=== PATIENT | male | born 1940 | race Caucasian/White ===

== ENCOUNTER 2017-03-18 20:14 | Inpatient (IN) | payer MEDICARE, OTHER ==
[~2017-03-18] VITALS: Ht 182.9 cm; Wt 113.8 kg
--- NOTE | ~2017-03-18 | OP ---
PATIENT NAME: BUNNY MISHRA MEDICAL RECORD: [id number] :38 LOCATION:[facility] ADMISSION DATE:03/19/17 SURGEON: BUNNY BRUMFIELD MD DATE OF OPERATION: 03/20/2017 DATE OF OPERATION: 03/20/2017 PREOPERATIVE DIAGNOSIS: Four-part fracture dislocation of the right shoulder. POSTOPERATIVE DIAGNOSIS: Four-part fracture dislocation of the right shoulder. PROCEDURE: Fracture hemiarthroplasty of the right shoulder. SURGEON: Bunny Brumfield MD ANESTHESIA: General. INTRAOPERATIVE COMPLICATIONS: None. SUMMARY OF PATHOLOGIC FINDINGS: The patient essentially had multi-fragmented greater and lesser tuberosities. The humeral head was in the inferior capsular recess. IMPLANTS USED: Tornier fracture stem, Aequalis, size 9 stem on a 48 x 18 head, cemented with Tornier cement restrictor. OPERATIVE SUMMARY IN DETAIL: After obtaining the appropriate preoperative orthopedic surgery consent as well as anesthetic consultation, evaluation and clearance, the patient was brought to the operating room and placed on the operating table in supine position. After general laryngeal mask airway was administered, the patient was placed in the beachchair position. All pressure points were well padded. He was held firmly to the operating room table using the vacuum pack suction system. The arm was held in the Arthrex Trimano arm holding device. After the right upper extremity was prepped and draped in routine sterile fashion, the arm was placed sterilely in the Arthrex Trimano device, deltopectoral incision was created. This was taken down to the level of the deltopectoral interval. This was gently opened to reveal the clavipectoral fascia which was blood stained from the fracture. At this point, clavipectoral was incised. The conjoined tendon was gently retracted. Biceps tendon was displaced medially. The lesser and greater tuberosities were multi-fragmented, serial and sequential control was gained with #2 FiberWire. The metaphyseal component of the head was saved at this point with each step for bone grafting later. Calcar was preserved. Ultimately, the humeral head was removed from the inferior pouch with a significant degree of difficulty. Having completed this, the entire cavity was cleaned of any fragmentation. Serial and sequential reaming and broaching, size 9 cemented fracture stem from Tornier was most appropriate on trial. Bone cement restrictor was put in and the stem was cemented in approximately 30 degrees of retroversion with the humeral head impacted on the Watts taper. This was then relocated after the cement was allowed to harden and the greater and lesser tuberosities multi-fragments were pulled around the humeral head, tied with sutures both around the neck as well as through the greater tuberosities. There was a bone void just inferior to the greater and lesser tuberosities. This was filled entirely with a bone graft as was the underside of the greater and lesser tuberosities packed with bone graft from the [place] humeral head. Having completed this, irrigation gentle was then OPERATIVE REPORT [id number] BUNNY MISHRA followed by closure of the wound with #1 Vicryl followed by skin charissa. Sterile dressings were applied. A slingshot brace was applied. The patient was awakened, taken to recovery room in stable condition. All final needle and sponge counts were correct. TRANSINT:[id number] Voice Confirmation ID: [id number] DOCUMENT ID: [id number] BUNNY BRUMFIELD MD at 0940 CC: [id number] DICTATION DATE: 03/20/172156 WELT DRAWER: 03/21/[address] [facility] [address] [place] [id number]
[2017-03-18] MEDS ORDERED: AMBIEN10 MG PO (23:03)
[2017-03-18] MEDS ORDERED: ASPIRIN EC81 M1 PO (23:04)
[2017-03-18] MEDS ORDERED: PROZAC40 MG PO (23:05)
[2017-03-18] MEDS ORDERED: ZESTRIL20 MG PO (23:08)
[2017-03-18] MEDS ORDERED: ZYRTEC10 MG PO (23:09)
[2017-03-18] MEDS ORDERED: CARDIZEM60 MG PO (23:12)
[2017-03-18] MEDS ORDERED: NAMENDA5 MG PO (23:14)
[2017-03-18] MEDS ORDERED: CRESTOR10 MG PO (23:16)
[2017-03-18] MEDS ORDERED: RANITIDINE H15 MG/ML PO (23:17)
[2017-03-18] MEDS ORDERED: NIASPAN500 MG PO (23:19)
[2017-03-18] MEDS ORDERED: CYCLOBENZAPRINE10 MG PO (23:22)
[2017-03-18] MEDS ORDERED: ATIVAN2 MG PO (23:23)
[2017-03-18 23:27] LABS: BASOPHILS 0.1 % (0-2); EOSINOPHILS 1.2 % (0-7); HEMATOCRIT 38.4 % (42.0-54.0); HEMOGLOBIN 12.2 g/dL (13.5-17.5); IMMATURE GRANULOCYTES 0.5 % (0-5); LYMPHOCYTES 5.3 % (15-50); MCH 29.4 pg (26.0-34.0); MCHC 31.8 g/dL (31.0-37.0); MCV 92.5 fL (80.0-100.0); MEAN PLATELET VOLUME 9.8 fL (7.4-10.4); MONOCYTES 6.8 % (2-11); NEUTROPHILS 86.1 % (40-80); PLATELET COUNT 217 10x3/uL (130-400); RBC 4.15 10x6/uL (4.20-6.10); RDW 15.1 % (11.5-14.5); WBC 15.6 10x3/uL (4.8-10.8)
[2017-03-18] MEDS ORDERED: GLUCOPHAGE500 MG PO (23:27)
[2017-03-18 23:37] LABS: APTT 24.7 SECONDS (22.8-39.4); PROTIME 12.8 SECONDS (11.6-15.0)
[2017-03-18 23:44] LABS: ALBUMIN 3.7 g/dL (3.4-5.0); ANION GAP 14.5 mmol/L (8-16); BILIRUBIN - TOTAL 0.24 mg/dL (0.2-1.3); CALCIUM 9.1 mg/dL (8.5-10.1); CARBON DIOXIDE 26.1 mmol/L (21.0-32.0); CREATININE - SERUM 1.6 mg/dL (0.6-1.3); POTASSIUM - SERUM 4.6 mmol/L (3.5-5.1); PROTEIN - SERUM 6.9 g/dL (6.4-8.2)
[2017-03-19] VITALS (7 sets, daily range): BP systolic 94–150; BP diastolic 53–76
[2017-03-19 07:56] LABS: BASOPHILS 0.1 % (0-2); EOSINOPHILS 1.2 % (0-7); HEMATOCRIT 34.6 % (42.0-54.0); IMMATURE GRANULOCYTES 0.4 % (0-5); LYMPHOCYTES 7.7 % (15-50); MCH 29.6 pg (26.0-34.0); MCHC 31.8 g/dL (31.0-37.0); MEAN PLATELET VOLUME 9.8 fL (7.4-10.4); NEUTROPHILS 83.6 % (40-80); PLATELET COUNT 214 10x3/uL (130-400); RBC 3.72 10x6/uL (4.20-6.10); RDW 15.5 % (11.5-14.5); WBC 13.2 10x3/uL (4.8-10.8)
[2017-03-19 08:08] LABS: APTT 23.6 SECONDS (22.8-39.4); INR 1.07 (0.85-1.17); PROTIME 13.5 SECONDS (11.6-15.0)
[2017-03-19 08:12] LABS: ALBUMIN 3.2 g/dL (3.4-5.0); ANION GAP 13.1 mmol/L (8-16); BILIRUBIN - TOTAL 0.31 mg/dL (0.2-1.3); CALCIUM 8.7 mg/dL (8.5-10.1); CARBON DIOXIDE 25.6 mmol/L (21.0-32.0); CREATININE - SERUM 1.8 mg/dL (0.6-1.3); MAGNESIUM - SERUM 2.1 mg/dL (1.8-2.4); PHOSPHOROUS 4.4 mg/dL (2.5-4.9); POTASSIUM - SERUM 4.7 mmol/L (3.5-5.1); PROTEIN - SERUM 6.3 g/dL (6.4-8.2)
[2017-03-19 12:13] LABS: APPEARANCE CLEAR (CLEAR); BILIRUBIN NEGATIVE (NEGATIVE); COLOR YELLOW (YELLOW); GLUCOSE 50 mg/dL (NEGATIVE); KETONE NEGATIVE (NEGATIVE); NITRITE NEGATIVE (NEGATIVE); PROTEIN 2+ mg/dL (NEGATIVE); UROBILINOGEN NORMAL (NORMAL)
[2017-03-19 12:15] LABS: BACTERIA FEW /hpf (NONE SEEN); CALCIUM OXALATE CRYSTALS 0-5 /hpf (NONE SEEN); EPITHELIAL CELLS 0-5 /hpf (0-5); HYALINE CAST 0-5 /lpf (NONE SEEN); RED CELLS - URINE 0-5 /hpf (0-5); WHITE CELLS - URINE 0-5 /hpf (0-5)
[2017-03-20 00:56] VITALS: BP 125/61
[2017-03-20 04:23] VITALS: BP 119/59
[2017-03-20 08:15] VITALS: BP 128/61
[2017-03-20 08:38] LABS: HEMATOCRIT 34.2 % (42.0-54.0); HEMOGLOBIN 10.7 g/dL (13.5-17.5); MCH 28.9 pg (26.0-34.0); MCHC 31.3 g/dL (31.0-37.0); MCV 92.4 fL (80.0-100.0); MEAN PLATELET VOLUME 9.9 fL (7.4-10.4); RBC 3.7 10x6/uL (4.20-6.10); RDW 15.3 % (11.5-14.5)
[2017-03-20 08:39] LABS: WBC 17.4 10x3/uL (4.8-10.8)
[2017-03-20 08:53] LABS: CALCIUM 8.7 mg/dL (8.5-10.1); CARBON DIOXIDE 24.6 mmol/L (21.0-32.0); CREATININE - SERUM 2.1 mg/dL (0.6-1.3); POTASSIUM - SERUM 4.6 mmol/L (3.5-5.1)
[2017-03-20 12:53] VITALS: BP 117/51
[2017-03-20 16:02] VITALS: BP 141/48
[2017-03-20 22:56] VITALS: BP 136/54
[2017-03-21 04:00] VITALS: BP 112/47
[2017-03-21 07:55] VITALS: BP 86/50
[2017-03-21 10:17] LABS: HEMATOCRIT 27.5 % (42.0-54.0); HEMOGLOBIN 8.8 g/dL (13.5-17.5); MCH 29.5 pg (26.0-34.0); MCV 92.3 fL (80.0-100.0); RBC 2.98 10x6/uL (4.20-6.10); RDW 15.3 % (11.5-14.5); WBC 13.9 10x3/uL (4.8-10.8)
[2017-03-21 11:52] VITALS: BP 113/52
[2017-03-21 16:11] VITALS: BP 90/45
[2017-03-21 20:00] VITALS: BP 173/56
[2017-03-22 04:00] VITALS: BP 140/63
[2017-03-22 08:17] VITALS: BP 118/63
[2017-03-22 11:55] VITALS: BP 110/56
[2017-03-22 16:33] VITALS: BP 160/61
[2017-03-23 04:00] VITALS: BP 156/69
[2017-03-23 08:38] VITALS: BP 155/68
[2017-03-23 08:57] LABS: HEMATOCRIT 24.7 % (42.0-54.0); HEMOGLOBIN 8.1 g/dL (13.5-17.5); MCH 29.3 pg (26.0-34.0); MCHC 32.8 g/dL (31.0-37.0); MEAN PLATELET VOLUME 9.4 fL (7.4-10.4); RBC 2.76 10x6/uL (4.20-6.10); RDW 15.3 % (11.5-14.5); WBC 12.8 10x3/uL (4.8-10.8)
[2017-03-23 09:00] LABS: MCV 89.5 fL (80.0-100.0)
[2017-03-23 09:21] LABS: ANION GAP 15.1 mmol/L (8-16); CALCIUM 8.3 mg/dL (8.5-10.1); CARBON DIOXIDE 22.1 mmol/L (21.0-32.0); CREATININE - SERUM 1.6 mg/dL (0.6-1.3); POTASSIUM - SERUM 4.2 mmol/L (3.5-5.1)
[2017-03-23 11:46] VITALS: BP 148/70
[2017-03-23 12:27] VITALS: Ht 182.9 cm; Wt 113.8 kg
[2017-03-23 16:25] VITALS: BP 168/77
[2017-03-23 20:00] VITALS: BP 185/88
[2017-03-24] VITALS: BP 190/82
[2017-03-24 04:00] VITALS: BP 139/72
[2017-03-24 04:57] LABS: BASOPHILS 0.1 % (0-2); EOSINOPHILS 1.4 % (0-7); HEMATOCRIT 26.2 % (42.0-54.0); HEMOGLOBIN 8.4 g/dL (13.5-17.5); IMMATURE GRANULOCYTES 0.5 % (0-5); MCH 28.8 pg (26.0-34.0); MCHC 32.1 g/dL (31.0-37.0); MCV 89.7 fL (80.0-100.0); MEAN PLATELET VOLUME 9.9 fL (7.4-10.4); MONOCYTES 9.6 % (2-11); NEUTROPHILS 82.4 % (40-80); RBC 2.92 10x6/uL (4.20-6.10); RDW 15.2 % (11.5-14.5); WBC 14.7 10x3/uL (4.8-10.8)
[2017-03-24 05:01] LABS: PLATELET COUNT 281 10x3/uL (130-400)
[2017-03-24 05:14] LABS: ANION GAP 15.1 mmol/L (8-16); CALCIUM 8.5 mg/dL (8.5-10.1); CARBON DIOXIDE 21.2 mmol/L (21.0-32.0); POTASSIUM - SERUM 4.3 mmol/L (3.5-5.1)
[2017-03-24 08:06] VITALS: BP 155/66
[2017-03-24 12:02] VITALS: BP 154/76
[2017-03-24] MEDS ORDERED: ATIVAN1 MG PO (15:31)
[2017-03-24] MEDS ORDERED: ACETAMINOPHEN500 M1 PO (15:31)
== END 2017-03-24 17:34 | DRG 483 ==
LOC: D.ER 20:14 → D.MS 21:55 → OBSVTIME 22:04 → D.MS 03-19 20:47
PROVIDERS: Family Medicine; Internal Medicine Nephrology; Orthopaedic Surgery; Physician Assistant Medical
PROC: 0RRJ0J6 Replacement of Right Shoulder Joint with Synthetic Substitute, Humeral Surface, Open Approach (ICD-10-PCS; principal; 2017-03-18)
DX: S42.201A Unspecified fracture of upper end of right humerus, initial encounter for closed fracture (principal); A41.9 Sepsis, unspecified organism; N17.9 Acute kidney failure, unspecified; N39.0 Urinary tract infection, site not specified; D62 Acute posthemorrhagic anemia; W17.89XA Other fall from one level to another, initial encounter; E11.9 Type 2 diabetes mellitus without complications; Z79.84 Long term (current) use of oral hypoglycemic drugs; I10 Essential (primary) hypertension; F03.90 Unspecified dementia, unspecified severity, without behavioral disturbance, psychotic disturbance, mood disturbance, and anxiety

== ENCOUNTER 2017-03-24 16:43 | Inpatient (IN) | payer MEDICARE, OTHER ==
[~2017-03-24] VITALS: Ht 182.9 cm; Wt 104.8 kg
--- NOTE | ~2017-03-24 | RHP ---
PATIENT: BUNNY MISHRA MEDICAL RECORD: [id number] ACCOUNT: [id number] LOCATION:[facility] : 39 ADMISSION DATE: 03/24/17 REHABILITATION HISTORY AND PHYSICAL EXAMINATION POST ADMISSION PHYSICIAN EXAMINATION DATE OF ADMISSION: 03/24/2017. ADMITTING DIAGNOSIS: Parkinson's disease. HISTORY OF PRESENT ILLNESS: The patient is a 76-year-old gentleman admitted to inpatient rehab heart with Parkinson's disease. He has recently had increasing weakness, functional decline, confusion, and frequent falls. He admitted to the ER on 03/19, fallen at home. He complained of shoulder pain. On exam, he had misalignment, joint swelling, decreased range of motion, deformity. X-ray showed an acute comminuted fracture of right humeral head with probable joint effusion and hemarthrosis. After medical clearance, he went to the OR on 03/20 for fractured hemiarthroscopy of the right shoulder. Postop, he did have an postop anemia of 8.4 and 26.2, hypoxia with sats as low as 89%, requiring continuous O2. He also had fever up to 101.5, hypotension with a BP of 86/50, leukocytosis with a white count of greater than 17,000. He has been on low resistant sliding scale secondary to some elevations in his blood sugar. He is moderate to max assist for ADLs and mobility. He is moderate to max assist for sit to stand and bed to chair. He is max assist for ambulation of only 8 feet with a rolling walker, gait belt, and PT. He has overall got poor balance, weakness in his extremities. His states that he has had a slow decline in his functional mobility. They both feel he would benefit from inpatient rehab as it is only chance of actually returning back to home. COMORBIDITIES: Include Parkinson's, acute comminuted fracture of the shoulder, fracture dislocation, shoulder joint effusion, falls, status post hemiarthroscopy of the right shoulder, weakness, leukocytosis, diabetes, hypoxia, anemia, hypotension, coronary artery disease, and gastroesophageal reflux disease. PAST MEDICAL HISTORY: Significant for Parkinson's, diabetes, hypertension, history of pneumonia. PAST SURGICAL HISTORY: Includes tonsillectomy. ALLERGIES: PENICILLIN. CURRENT MEDICATIONS: Include Protonix 40 mg daily, metformin 500 mg b.i.d. with meals, lisinopril 20 mg daily. He is on Prozac 40 mg daily, aspirin chewable 81 mg daily, Christine 60 mg b.i.d., zolpidem 10 mg at bedtime, Crestor 10 mg at bedtime, niacin 500 mg b.i.d., Namenda 5 mg b.i.d., Ativan 1 mg t.i.d. p.r.n., Cardizem 120 mg b.i.d., Tylenol 500 mg q.4 hours p.r.n., and polyethylene glycol 17 grams in 8 ounces of water daily. HABITS: No alcohol or tobacco use. FAMILY HISTORY: Noncontributory. SOCIAL HISTORY: The patient hopes to return back home with his and get back to his prior level of functioning. HISTORY AND PHYSICAL [id number] BUNNY MISHRA REVIEW OF SYSTEMS: GENERAL: He does complain of weakness. HEENT: He denies cold, cough, or congestion. CARDIOVASCULAR: He denies chest pain. PHYSICAL EXAMINATION: VITAL SIGNS: Stable, afebrile. GENERAL: A well-developed gentleman. HEENT: Normocephalic and atraumatic. Mucosa moist. NECK: Supple. No lymphadenopathy. LUNGS: Clear at this time. HEART: Regular rate and rhythm. ABDOMEN: Benign. EXTREMITIES: He does have bandages and immobilization of his shoulder. NEUROLOGIC: Consistent with Parkinson's with somewhat of a flat affect and noted tremor. LABORATORY DATA: White count 16.4, H&H 8.3 and 24.8, platelet count 363. His sodium is 138, potassium 4.2, BUN and creatinine of 36 and 2.4, and blood sugar is noted to be 138. ASSESSMENT: This is a 76-year-old gentleman admitted to the rehab with a working diagnosis of Parkinson's and also comminuted shoulder fracture and anemia. The patient has potential to make improvement. We instituted the following multidisciplinary therapies including to, but not limited to physical, occupational, respiratory, speech, nutritional services, prosthetics and orthotics. Given his complex condition and risk for more complications, rehabilitation services cannot be provided at a lower level of care such as a [facility] facility. PLAN: 1. Admit to [facility] rehab for intensive inpatient therapy to include the following disciplines: A. Physical therapy to improve gait, all transfer skills and bed mobility to a modified independent level. B. Occupational therapy to improve activities of daily living to a modified independent level. C. Case management to assist with discharge planning and placement options. D. Nutrition to assist with nutritional needs. E. Rehabilitation nursing to assist in monitoring the patient's underlying medical conditions and to assist with any type of bowel or bladder management. 2. The patient's current medication and medical care will be continued. 3. The patient will be placed on standard fall precautions. 4. The patient's estimated length of stay is approximately 7-10 days. 5. I am going to go ahead and type and cross him for a couple units of blood. I will go ahead and transfuse him here today. I will follow up his blood count either tomorrow morning or on Monday morning and we will treat appropriately. TRANSINT:[id number] Voice Confirmation ID: [id number] DOCUMENT ID: [id number] CALI notes whether there has been none or any medical/functional change since admission: - No change since prescreen. HISTORY AND PHYSICAL [id number] BUNNY MISHRA attests patient continues to be appropriate for IRF: - Continues to be appropriate. ADOLFO DÍAZ MD at 1802 CC: [id number] DICTATION DATE: 03/25/17 1317 CLINICAL ATHLETIC INSTRUCTOR: 03/25/17 1351 ADM IN [place] [id number] [place] [id number]
[~2017-03-24 16:43] MED LIST: ACETAMINOPHEN500 M1 PO; AMBIEN10 MG PO; ASPIRIN EC81 M1 PO; ATIVAN1 MG PO; ATIVAN2 MG PO; CARDIZEM60 MG PO; CRESTOR10 MG PO; CYCLOBENZAPRINE10 MG PO; GLUCOPHAGE500 MG PO; NAMENDA5 MG PO; NIASPAN500 MG PO; PROZAC40 MG PO; RANITIDINE H15 MG/ML PO; ZESTRIL20 MG PO; ZYRTEC10 MG PO
[2017-03-24 18:10] VITALS: BP 174/75; BMI 31.4
[2017-03-24 23:26] VITALS: BP 138/94
[2017-03-25 07:01] LABS: HEMATOCRIT 24.8 % (42.0-54.0); HEMOGLOBIN 8.3 g/dL (13.5-17.5); MCH 29.6 pg (26.0-34.0); MCHC 33.5 g/dL (31.0-37.0); MCV 88.6 fL (80.0-100.0); MEAN PLATELET VOLUME 8.8 fL (7.4-10.4); NEUTROPHILS 82.5 % (40-80); RDW 14.9 % (11.5-14.5); WBC 16.4 10x3/uL (4.8-10.8)
[2017-03-25 07:02] LABS: PLATELET COUNT 363 10x3/uL (130-400)
[2017-03-25 07:11] LABS: CALCIUM 8.5 mg/dL (8.5-10.1); CARBON DIOXIDE 20.2 mmol/L (21.0-32.0); CREATININE - SERUM 2.4 mg/dL (0.6-1.3); POTASSIUM - SERUM 4.2 mmol/L (3.5-5.1)
[2017-03-25 11:30] VITALS: BMI 31.3
[2017-03-25 20:00] VITALS: BP 137/69
[2017-03-26 12:39] VITALS: BP 169/76
[2017-03-26 19:07] VITALS: BP 150/72
[2017-03-27 06:05] LABS: BASOPHILS 0.2 % (0-2); EOSINOPHILS 4.9 % (0-7); HEMOGLOBIN 9.6 g/dL (13.5-17.5); IMMATURE GRANULOCYTES 1.6 % (0-5); LYMPHOCYTES 6.2 % (15-50); MCH 29.4 pg (26.0-34.0); MCHC 33.1 g/dL (31.0-37.0); MCV 88.7 fL (80.0-100.0); MEAN PLATELET VOLUME 9.1 fL (7.4-10.4); MONOCYTES 8.7 % (2-11); NEUTROPHILS 78.4 % (40-80); PLATELET COUNT 377 10x3/uL (130-400); RBC 3.27 10x6/uL (4.20-6.10); WBC 15.4 10x3/uL (4.8-10.8)
[2017-03-27 06:24] LABS: ANION GAP 18.8 mmol/L (8-16); CALCIUM 8.4 mg/dL (8.5-10.1); CARBON DIOXIDE 18.9 mmol/L (21.0-32.0); CREATININE - SERUM 2.6 mg/dL (0.6-1.3); POTASSIUM - SERUM 3.7 mmol/L (3.5-5.1)
[2017-03-27 08:00] VITALS: BP 124/61; BP 163/84
[2017-03-27 20:31] VITALS: BP 158/74
[2017-03-28 08:00] VITALS: BP 155/76
[2017-03-28 21:00] VITALS: BP 170/76
[2017-03-29 06:50] LABS: BASOPHILS 0.1 % (0-2); EOSINOPHILS 7.5 % (0-7); HEMATOCRIT 28.7 % (42.0-54.0); HEMOGLOBIN 9.2 g/dL (13.5-17.5); LYMPHOCYTES 7.3 % (15-50); MCH 28.9 pg (26.0-34.0); MCHC 32.1 g/dL (31.0-37.0); MCV 90.3 fL (80.0-100.0); MEAN PLATELET VOLUME 8.9 fL (7.4-10.4); MONOCYTES 7.8 % (2-11); NEUTROPHILS 74.3 % (40-80); PLATELET COUNT 436 10x3/uL (130-400); RBC 3.18 10x6/uL (4.20-6.10); RDW 15.1 % (11.5-14.5); WBC 15.8 10x3/uL (4.8-10.8)
[2017-03-29 07:08] LABS: ANION GAP 19.1 mmol/L (8-16); CALCIUM 8.1 mg/dL (8.5-10.1); CARBON DIOXIDE 18.1 mmol/L (21.0-32.0); CREATININE - SERUM 5.1 mg/dL (0.6-1.3); POTASSIUM - SERUM 4.2 mmol/L (3.5-5.1)
[2017-03-29 07:46] VITALS: BP 161/83
[2017-03-29 20:21] LABS: CREATININE - URINE 62.8 mg/dL (30-125); POTASSIUM - URINE 25.6 MMOL/L (12.0-62.0); PRO/CRE RATIO URINE 1.7 mg/g; PROTEIN - URINE 109.6 mg/dL (0.0-11.9)
[2017-03-29 20:55] LABS: APPEARANCE SLT CLOUDY (CLEAR); BILIRUBIN NEGATIVE (NEGATIVE); COLOR YELLOW (YELLOW); GLUCOSE NEGATIVE (NEGATIVE); KETONE NEGATIVE (NEGATIVE); NITRITE NEGATIVE (NEGATIVE); PROTEIN 1+ mg/dL (NEGATIVE); SPECIFIC GRAVITY 1.015 (1.005-1.020); UROBILINOGEN NORMAL (NORMAL)
[2017-03-29 20:57] LABS: AMORPHOUS SEDIMENT <1+ /lpf (NONE SEEN); BACTERIA FEW /hpf (NONE SEEN); EPITHELIAL CELLS 0-5 /hpf (0-5); RED CELLS - URINE 0-5 /hpf (0-5)
[2017-03-29 21:16] VITALS: BP 149/77
[2017-03-30 06:08] LABS: BASOPHILS 0.2 % (0-2); EOSINOPHILS 5.6 % (0-7); HEMOGLOBIN 9.6 g/dL (13.5-17.5); LYMPHOCYTES 7.8 % (15-50); MCH 28.9 pg (26.0-34.0); MCV 90.4 fL (80.0-100.0); MONOCYTES 8.2 % (2-11); NEUTROPHILS 75.2 % (40-80); PLATELET COUNT 472 10x3/uL (130-400); RBC 3.32 10x6/uL (4.20-6.10); RDW 15.1 % (11.5-14.5); WBC 14.2 10x3/uL (4.8-10.8)
[2017-03-30 06:19] LABS: ANION GAP 16.7 mmol/L (8-16); CALCIUM 7.9 mg/dL (8.5-10.1); CARBON DIOXIDE 20.2 mmol/L (21.0-32.0); POTASSIUM - SERUM 3.9 mmol/L (3.5-5.1)
[2017-03-30 06:25] LABS: CREATININE - SERUM 3.7 mg/dL (0.6-1.3)
[2017-03-30 08:00] VITALS: BP 195/70
[2017-03-30 19:30] VITALS: BP 174/77
[2017-03-31 08:00] VITALS: BP 150/72
[2017-03-31 10:14] LABS: BASOPHILS 0.3 % (0-2); EOSINOPHILS 5.9 % (0-7); HEMATOCRIT 32.8 % (42.0-54.0); HEMOGLOBIN 10.7 g/dL (13.5-17.5); IMMATURE GRANULOCYTES 2.4 % (0-5); LYMPHOCYTES 7.9 % (15-50); MCH 29.6 pg (26.0-34.0); MCHC 32.6 g/dL (31.0-37.0); MCV 90.6 fL (80.0-100.0); MEAN PLATELET VOLUME 8.8 fL (7.4-10.4); MONOCYTES 6.3 % (2-11); NEUTROPHILS 77.2 % (40-80); PLATELET COUNT 471 10x3/uL (130-400); RBC 3.62 10x6/uL (4.20-6.10); WBC 16.8 10x3/uL (4.8-10.8)
[2017-03-31 10:28] LABS: ANION GAP 15.9 mmol/L (8-16); CALCIUM 8.3 mg/dL (8.5-10.1); CARBON DIOXIDE 21.8 mmol/L (21.0-32.0); CREATININE - SERUM 1.8 mg/dL (0.6-1.3); POTASSIUM - SERUM 3.7 mmol/L (3.5-5.1)
[2017-03-31 17:03] VITALS: Ht 182.9 cm; Wt 104.8 kg
[2017-03-31 19:00] VITALS: BP 180/73
[2017-04-01 05:31] LABS: BASOPHILS 0.2 % (0-2); EOSINOPHILS 7.2 % (0-7); HEMATOCRIT 30.5 % (42.0-54.0); HEMOGLOBIN 9.8 g/dL (13.5-17.5); IMMATURE GRANULOCYTES 3.7 % (0-5); LYMPHOCYTES 10.2 % (15-50); MCHC 32.1 g/dL (31.0-37.0); MCV 90.2 fL (80.0-100.0); MEAN PLATELET VOLUME 8.9 fL (7.4-10.4); MONOCYTES 7.7 % (2-11); PLATELET COUNT 491 10x3/uL (130-400); RBC 3.38 10x6/uL (4.20-6.10); WBC 16.3 10x3/uL (4.8-10.8)
[2017-04-01 05:41] LABS: ANION GAP 14.2 mmol/L (8-16); CARBON DIOXIDE 23.4 mmol/L (21.0-32.0); CREATININE - SERUM 1.5 mg/dL (0.6-1.3); POTASSIUM - SERUM 3.6 mmol/L (3.5-5.1)
[2017-04-01 08:00] VITALS: BP 145/070
[2017-04-01 19:35] VITALS: BP 158/70
[2017-04-02 05:49] LABS: BASOPHILS 0.1 % (0-2); EOSINOPHILS 4.5 % (0-7); HEMATOCRIT 31.6 % (42.0-54.0); HEMOGLOBIN 10.1 g/dL (13.5-17.5); IMMATURE GRANULOCYTES 2.6 % (0-5); LYMPHOCYTES 9.9 % (15-50); MCH 29.2 pg (26.0-34.0); MCV 91.3 fL (80.0-100.0); MEAN PLATELET VOLUME 9.4 fL (7.4-10.4); MONOCYTES 7.2 % (2-11); NEUTROPHILS 75.7 % (40-80); RBC 3.46 10x6/uL (4.20-6.10); RDW 14.8 % (11.5-14.5); WBC 15.9 10x3/uL (4.8-10.8)
[2017-04-02 06:07] LABS: PLATELET COUNT 270 10x3/uL (130-400)
[2017-04-02 06:12] LABS: ANION GAP 15.9 mmol/L (8-16); CALCIUM 8.5 mg/dL (8.5-10.1); CARBON DIOXIDE 22.4 mmol/L (21.0-32.0); CREATININE - SERUM 1.4 mg/dL (0.6-1.3); POTASSIUM - SERUM 4.3 mmol/L (3.5-5.1)
[2017-04-02 09:11] VITALS: BP 178/72
[2017-04-02 23:40] VITALS: BP 154/66
[2017-04-03 06:10] LABS: BASOPHILS 0.2 % (0-2); EOSINOPHILS 4.7 % (0-7); HEMATOCRIT 30.7 % (42.0-54.0); HEMOGLOBIN 9.9 g/dL (13.5-17.5); IMMATURE GRANULOCYTES 2.1 % (0-5); LYMPHOCYTES 11.7 % (15-50); MCH 29.4 pg (26.0-34.0); MCHC 32.2 g/dL (31.0-37.0); MCV 91.1 fL (80.0-100.0); MONOCYTES 6.7 % (2-11); NEUTROPHILS 74.6 % (40-80); RBC 3.37 10x6/uL (4.20-6.10); RDW 14.7 % (11.5-14.5); WBC 16.7 10x3/uL (4.8-10.8)
[2017-04-03 06:11] LABS: PLATELET COUNT 557 10x3/uL (130-400)
[2017-04-03 06:33] LABS: ANION GAP 13.9 mmol/L (8-16); CALCIUM 8.2 mg/dL (8.5-10.1); CARBON DIOXIDE 24.7 mmol/L (21.0-32.0); CREATININE - SERUM 1.4 mg/dL (0.6-1.3); POTASSIUM - SERUM 3.6 mmol/L (3.5-5.1)
[2017-04-03 08:00] VITALS: BP 135/70
[2017-04-03 20:00] VITALS: BP 141/65
[2017-04-04 08:00] VITALS: BP 149/64
[2017-04-04 19:25] VITALS: BP 133/67
[2017-04-05 06:07] LABS: BASOPHILS 0.2 % (0-2); EOSINOPHILS 4.3 % (0-7); HEMATOCRIT 29.8 % (42.0-54.0); HEMOGLOBIN 9.3 g/dL (13.5-17.5); IMMATURE GRANULOCYTES 1.8 % (0-5); LYMPHOCYTES 11.6 % (15-50); MCH 28.8 pg (26.0-34.0); MCHC 31.2 g/dL (31.0-37.0); MCV 92.3 fL (80.0-100.0); MEAN PLATELET VOLUME 8.9 fL (7.4-10.4); MONOCYTES 7.7 % (2-11); NEUTROPHILS 74.4 % (40-80); PLATELET COUNT 517 10x3/uL (130-400); RBC 3.23 10x6/uL (4.20-6.10); RDW 14.9 % (11.5-14.5); WBC 16.9 10x3/uL (4.8-10.8)
[2017-04-05 06:08] LABS: ANION GAP 11.9 mmol/L (8-16); CALCIUM 8.8 mg/dL (8.5-10.1); CARBON DIOXIDE 25.6 mmol/L (21.0-32.0); CREATININE - SERUM 1.3 mg/dL (0.6-1.3); POTASSIUM - SERUM 3.5 mmol/L (3.5-5.1)
[2017-04-05 08:34] VITALS: BP 143/67
[2017-04-05 20:41] VITALS: BP 150/63
[2017-04-06 08:00] VITALS: BP 125/62
[2017-04-06 22:04] VITALS: BP 145/72
[2017-04-07 06:43] LABS: BASOPHILS 0.2 % (0-2); EOSINOPHILS 4.3 % (0-7); HEMATOCRIT 32.5 % (42.0-54.0); HEMOGLOBIN 10.3 g/dL (13.5-17.5); IMMATURE GRANULOCYTES 1.3 % (0-5); LYMPHOCYTES 12.7 % (15-50); MCH 28.9 pg (26.0-34.0); MCHC 31.7 g/dL (31.0-37.0); MEAN PLATELET VOLUME 9.4 fL (7.4-10.4); MONOCYTES 9.3 % (2-11); NEUTROPHILS 72.2 % (40-80); PLATELET COUNT 505 10x3/uL (130-400); RBC 3.57 10x6/uL (4.20-6.10); RDW 14.9 % (11.5-14.5); WBC 14.7 10x3/uL (4.8-10.8)
[2017-04-07 07:00] LABS: ANION GAP 16.8 mmol/L (8-16); CARBON DIOXIDE 22.5 mmol/L (21.0-32.0); CREATININE - SERUM 1.4 mg/dL (0.6-1.3); POTASSIUM - SERUM 4.3 mmol/L (3.5-5.1)
[2017-04-07 08:34] VITALS: BP 134/65
[2017-04-07 21:11] VITALS: BP 155/74
[2017-04-08 14:26] VITALS: BP 171/70
[2017-04-09 00:13] VITALS: BP 122/68
[2017-04-09 08:35] VITALS: BP 153/71
[2017-04-09 19:00] VITALS: BP 155/75
[2017-04-10 08:00] VITALS: BP 161/68
[2017-04-10] MEDS ORDERED: CATAPRES0.1 MG PO (08:31)
[2017-04-10] MEDS ORDERED: NORVASC10 MG PO (08:31)
[2017-04-10] MEDS ORDERED: PROSCAR5 MG PO (08:32)
[2017-04-10] MEDS ORDERED: AVODART0.5 MG PO (08:32)
[2017-04-10 19:10] VITALS: BP 165/83
[2017-04-11 08:16] VITALS: BP 150/77
== END 2017-04-11 12:51 | disposition home health service (06) | DRG 57 ==
LOC: D.REHAB 16:43
PROVIDERS: Emergency Medicine; Internal Medicine
DX: G20 Parkinson's disease (principal); S42.301A Unspecified fracture of shaft of humerus, right arm, initial encounter for closed fracture; D62 Acute posthemorrhagic anemia; N39.0 Urinary tract infection, site not specified; W19.XXXA Unspecified fall, initial encounter; Y92.009 Unspecified place in unspecified non-institutional (private) residence as the place of occurrence of the external cause; M25.411 Effusion, right shoulder; R53.1 Weakness; R09.02 Hypoxemia; E11.22 Type 2 diabetes mellitus with diabetic chronic kidney disease; I12.9 Hypertensive chronic kidney disease with stage 1 through stage 4 chronic kidney disease, or unspecified chronic kidney disease; N18.3 Chronic kidney disease, stage 3 (moderate); N40.1 Benign prostatic hyperplasia with lower urinary tract symptoms; E11.65 Type 2 diabetes mellitus with hyperglycemia; F03.90 Unspecified dementia, unspecified severity, without behavioral disturbance, psychotic disturbance, mood disturbance, and anxiety; D72.829 Elevated white blood cell count, unspecified; I25.10 Atherosclerotic heart disease of native coronary artery without angina pectoris; K21.9 Gastro-esophageal reflux disease without esophagitis

== ENCOUNTER 2017-05-11 08:57 | Inpatient (IN) | payer MEDICARE, OTHER ==
[~2017-05-11] VITALS: Ht 182.9 cm; Wt 104.5 kg
--- NOTE | ~2017-05-11 | OP ---
PATIENT NAME: BUNNY MISHRA MEDICAL RECORD: [id number] :39 LOCATION:[facility] ADMISSION DATE:05/11/17 SURGEON: BUNNY BRUMFIELD MD DATE OF OPERATION: 05/11/2017 PREOPERATIVE DIAGNOSIS: Displaced greater tuberosity fracture -- periprosthetic fracture of the right shoulder status post hemiarthroplasty. POSTOPERATIVE DIAGNOSIS: Displaced greater tuberosity fracture -- periprosthetic fracture of the right shoulder status post hemiarthroplasty. PROCEDURE: Revision of hemiarthroplasty with open reduction and internal fixation of the greater tuberosity. SURGEON: Bunny Brumfield MD ANESTHESIA: General. INTRAOPERATIVE COMPLICATIONS: None. SUMMARY OF PATHOLOGIC FINDINGS: The greater tuberosity had subluxed into the glenohumeral joint based on the last patient's accident. This required complete revision as the cemented stem was removed to access the greater tuberosity for repair. IMPLANTS USED: Tornier 6 x 5 cemented fracture stem, 48 x 18 mm head. ESTIMATED BLOOD LOSS: 200 cc. OPERATIVE SUMMARY IN DETAIL: After obtaining the appropriate preoperative orthopedic surgery consent as well as anesthetic consultation, evaluation and clearance, the patient was brought to the operating room and placed on the operating table in supine position. After general laryngeal mask was administered, the patient was placed in the beach chair position. All pressure points were well padded. He was held firmly to the operating table using the vacuum pack suction system. Right upper extremity and shoulder were then prepped and draped in a routine sterile fashion. The arm was held in the Trimano arm holding device. The previous incision was utilized again in the deltopectoral groove. The incision was taken down. The deltoid had somewhat scarred to some of the fracture fragments. The scarring was all taken down on the superior aspect of the rotator cuff as well as posterior. Subscapularis was identified. Each of these pieces were tagged with a #2 Ethibond for later retraction. At this point, the previously placed hemiarthroplasty was gently tapped out of the humerus. At this point, the greater tuberosity fragment that had subluxed into the patient's glenohumeral joint was tagged, found and trimmed down somewhat for better reapproximation. Copious irrigation was then followed by cementing a 6.5 stem with the humeral head in place. At this point, the shoulder was reduced back to the glenohumeral joint and then the greater tuberosity fragments along with the lesser tuberosity, subscapularis and rotator cuffs were sutured around the backside of the stem with sutures through the stem and sutures around the front of the stem. This resulted in what I think is excellent repair of the rotator cuff and its bony fragments back around the hemiarthroplasty. Copious irrigation was then followed by #1 Vicryl, 2-0 Vicryl and skin charissa for final skin closure. Sterile dressings were applied. The patient was awakened and taken to the recovery room in stable condition. All OPERATIVE REPORT [id number] BUNNY MISHRA final needle and sponge counts were correct. TRANSINT:[id number] Voice Confirmation ID: [id number] DOCUMENT ID: [id number] BUNNY BRUMFIELD MD at 1555 CC: [id number] DICTATION DATE: 05/11/17 1438 THERAPIST: 05/11/17 1534 DIS IN 05/15/17 [facility] [address] [place] [address]
[~2017-05-11 08:57] MED LIST changes: +AVODART0.5 MG PO; +CATAPRES0.1 MG PO; +NORVASC10 MG PO; +PROSCAR5 MG PO
[2017-05-11 09:55] VITALS: BP 155/67; BMI 31.2
[2017-05-11 10:13] LABS: ANION GAP 15.4 mmol/L (8-16); CALCIUM 9.4 mg/dL (8.5-10.1); CARBON DIOXIDE 23.3 mmol/L (21.0-32.0); CREATININE - SERUM 1.3 mg/dL (0.6-1.3); POTASSIUM - SERUM 3.7 mmol/L (3.5-5.1)
[2017-05-11 10:14] LABS: HEMATOCRIT 37.7 % (42.0-54.0); MCH 29.7 pg (26.0-34.0); MCHC 31.8 g/dL (31.0-37.0); MCV 93.3 fL (80.0-100.0); MEAN PLATELET VOLUME 9.7 fL (7.4-10.4); RBC 4.04 10x6/uL (4.20-6.10); RDW 15.4 % (11.5-14.5); WBC 12.4 10x3/uL (4.8-10.8)
[2017-05-11 18:39] VITALS: BP 1146/71; Ht 182.9 cm; Wt 104.5 kg
[2017-05-11] MEDS ORDERED: AMBIEN5 MG PO (19:12)
[2017-05-11] MEDS ORDERED: ATIVAN2 MG PO (19:13)
[2017-05-11] MEDS ORDERED: ULTRAM50 MG PO (19:14)
[2017-05-11 20:55] VITALS: BP 133/76
[2017-05-11 23:17] VITALS: BP 130/72
[2017-05-12 04:24] VITALS: BP 151/84
[2017-05-12 06:40] LABS: MCH 29.8 pg (26.0-34.0); MCV 93.3 fL (80.0-100.0); MEAN PLATELET VOLUME 9.9 fL (7.4-10.4); RDW 15.6 % (11.5-14.5)
[2017-05-12 06:48] LABS: HEMATOCRIT 29.4 % (42.0-54.0); HEMOGLOBIN 9.4 g/dL (13.5-17.5); RBC 3.15 10x6/uL (4.20-6.10)
[2017-05-12 08:10] VITALS: BP 146/82
[2017-05-12 11:57] VITALS: BP 160/80
[2017-05-12 16:19] VITALS: BP 163/86
[2017-05-12 20:30] VITALS: BP 157/88
[2017-05-13 01:01] VITALS: BP 143/68
[2017-05-13 05:02] VITALS: BP 154/52
[2017-05-13 06:03] LABS: HEMATOCRIT 30.6 % (42.0-54.0); HEMOGLOBIN 9.7 g/dL (13.5-17.5); MCH 29.2 pg (26.0-34.0); MCHC 31.7 g/dL (31.0-37.0); MCV 92.2 fL (80.0-100.0); RBC 3.32 10x6/uL (4.20-6.10); RDW 15.1 % (11.5-14.5); WBC 13.4 10x3/uL (4.8-10.8)
[2017-05-13 07:51] VITALS: BP 144/75
[2017-05-13 11:27] VITALS: BP 112/64
[2017-05-13 16:33] VITALS: BP 131/77
[2017-05-13 22:04] VITALS: BP 151/81
[2017-05-14 06:00] VITALS: BP 161/61
[2017-05-14 08:08] VITALS: BP 145/77
[2017-05-14 11:52] VITALS: BP 120/60
[2017-05-14 15:29] VITALS: BP 141/71
[2017-05-14 20:00] VITALS: BP 149/75
[2017-05-15 04:00] VITALS: BP 137/64
[2017-05-15] MEDS ORDERED: ULTRAM50 MG PO (08:07)
[2017-05-15 08:14] LABS: BASOPHILS 0.2 % (0-2); EOSINOPHILS 1.6 % (0-7); HEMATOCRIT 26.6 % (42.0-54.0); HEMOGLOBIN 8.3 g/dL (13.5-17.5); IMMATURE GRANULOCYTES 0.2 % (0-5); LYMPHOCYTES 10.1 % (15-50); MCH 28.9 pg (26.0-34.0); MCHC 31.2 g/dL (31.0-37.0); MCV 92.7 fL (80.0-100.0); MEAN PLATELET VOLUME 9.2 fL (7.4-10.4); MONOCYTES 9.3 % (2-11); NEUTROPHILS 78.6 % (40-80); PLATELET COUNT 238 10x3/uL (130-400); RBC 2.87 10x6/uL (4.20-6.10); RDW 15.3 % (11.5-14.5); WBC 8.8 10x3/uL (4.8-10.8)
[2017-05-15 08:37] LABS: ALBUMIN 2.2 g/dL (3.4-5.0); ANION GAP 13.1 mmol/L (8-16); BILIRUBIN - TOTAL 0.68 mg/dL (0.2-1.3); CALCIUM 7.7 mg/dL (8.5-10.1); CARBON DIOXIDE 23.1 mmol/L (21.0-32.0); CREATININE - SERUM 1.2 mg/dL (0.6-1.3); PHOSPHOROUS 3.2 mg/dL (2.5-4.9); POTASSIUM - SERUM 3.2 mmol/L (3.5-5.1); PROTEIN - SERUM 5.5 g/dL (6.4-8.2)
[2017-05-15 08:39] VITALS: BP 144/69
== END 2017-05-15 10:22 | DRG 483 ==
LOC: D.OPS 08:57 → D.MS 09:06 → D.SDCHOLD 09:06 → D.OPS 11:45 → D.PAN 12:00 → D.OPS 12:45 → D.MS 16:58
PROVIDERS: Anesthesiology; Orthopaedic Surgery
PROC: 0RRJ0J6 Replacement of Right Shoulder Joint with Synthetic Substitute, Humeral Surface, Open Approach (ICD-10-PCS; 2017-05-11)
PROC: 0RPJ0JZ Removal of Synthetic Substitute from Right Shoulder Joint, Open Approach (ICD-10-PCS; 2017-05-11)
PROC: 0PSC04Z Reposition Right Humeral Head with Internal Fixation Device, Open Approach (ICD-10-PCS; principal; 2017-05-11 11:45)
DX: S42.251A Displaced fracture of greater tuberosity of right humerus, initial encounter for closed fracture (principal); T84.018A Broken internal joint prosthesis, other site, initial encounter; D62 Acute posthemorrhagic anemia; Z96.611 Presence of right artificial shoulder joint; W18.30XA Fall on same level, unspecified, initial encounter; Z87.891 Personal history of nicotine dependence; F03.90 Unspecified dementia, unspecified severity, without behavioral disturbance, psychotic disturbance, mood disturbance, and anxiety

== ENCOUNTER 2017-05-29 06:13 | Inpatient (IN) | payer MEDICARE, OTHER ==
[~2017-05-29] VITALS: Ht 182.9 cm; Wt 103.9 kg
--- NOTE | ~2017-05-29 | OP ---
PATIENT NAME: BUNNY MISHRA MEDICAL RECORD: [id number] :39 LOCATION:[facility] ADMISSION DATE:05/29/17 SURGEON: BUNNY BRUMFIELD MD DATE OF OPERATION: 05/29/2017 PREOPERATIVE DIAGNOSIS: Failed hemiarthroplasty of the right shoulder with Watts taper disassociation in situ. POSTOPERATIVE DIAGNOSIS: Failed hemiarthroplasty of the right shoulder with Watts taper disassociation in situ. PROCEDURE: Revision hemiarthroplasty of the right shoulder. SURGEON: Bunny Brumfield MD ANESTHESIA: General. INTRAOPERATIVE COMPLICATIONS: None. SUMMARY OF PATHOLOGIC FINDINGS: The patient's prosthetic humeral head had dislodged posterior to the stem. It was substantially posterior in the deltoid and a second incision was required to retrieve it. OPERATIVE SUMMARY IN DETAIL: After obtaining appropriate preoperative orthopedic surgery consent as well as anesthetic consultation, evaluation and clearance, the patient was brought to the operating room and placed on the operating table in supine position. After general laryngeal mask airway was administered, the patient was placed in beach chair position. All pressure points were well padded. He was held firmly to the operating table using the vacuum pack suction system. Right upper extremity and shoulder were prepped and draped in routine sterile fashion. The arm was held in Trimano arm holding device. Incision was made over the previous deltopectoral incision, was taken down to the level of the stem which was immediately identified to be completely disassociated from its humeral head. After some dissection was carried out to clear the glenoid of all soft tissue, a second incision was made just off the anterolateral edge of the acromion, taken down to the level of the subdeltoid bursa. Upon incision, the humeral head was immediately identified and it was removed. Having completed this, the accessory incision was closed with #2 Ethibond followed by #1 Vicryl, 2-0 Vicryl, and skin charissa. Attention was then returned to the proximal humerus. All residual remaining leaflets of rotator cuff were tagged with a #2 Ethibond. A size 46 x 18 head was then put into place, tamped into place with Watts taper, checked several times to be sure that it was well seated. The shoulder was relocated back into the glenoid. Fluoroscopy was utilized to be sure that there was no superior migration and that good seating was obtained. At this point, the holes on the back side of the fracture stem were utilized to reapproximate the subscapularis, supraspinatus, and portions of the infraspinatus back around the head of the humerus. At this point, the wound was copiously irrigated at this multiple points. The deltopectoral interval was closed in 2 layers to try to avoid an open space for hematoma. Final closure was done with skin stitches. Sterile dressings were applied. At this point, the patient was placed in a shoulder immobilizer, which I will ask him to not remove. Evidently there have been problems with his taking his sling off. He will be admitted for further care and then hopefully rehabilitation afterwards. Please note all final needle and sponge counts were correct. OPERATIVE REPORT [id number] BUNNY MISHRA TRANSINT:[id number] Voice Confirmation ID: [id number] DOCUMENT ID: [id number] BUNNY BRUMFIELD MD at 1347 CC: [id number] DICTATION DATE: 05/29/17 1104 ASSOCIATE PROFESSOR OF SOCIOLOGY: 05/29/17 1313 ADM IN [facility] [address] [place] [address]
[~2017-05-29 06:13] MED LIST changes: +AMBIEN5 MG PO; +ULTRAM50 MG PO
[2017-05-29 07:01] LABS: BASOPHILS 0.5 % (0-2); EOSINOPHILS 4.3 % (0-7); HEMATOCRIT 29.5 % (42.0-54.0); HEMOGLOBIN 9.2 g/dL (13.5-17.5); LYMPHOCYTES 9.5 % (15-50); MCHC 31.2 g/dL (31.0-37.0); MCV 89.9 fL (80.0-100.0); MEAN PLATELET VOLUME 8.8 fL (7.4-10.4); MONOCYTES 5.8 % (2-11); NEUTROPHILS 78.9 % (40-80); PLATELET COUNT 476 10x3/uL (130-400); RBC 3.28 10x6/uL (4.20-6.10); RDW 14.7 % (11.5-14.5); WBC 9.1 10x3/uL (4.8-10.8)
[2017-05-29] MEDS ORDERED: HYDROCODONE-APA1 TAB PO (07:03)
[2017-05-29] MEDS ORDERED: HYDROCODON-ACE1 EAC7 PO (07:04)
[2017-05-29] MEDS ORDERED: PROBIOTIC250 MG PO (07:07)
[2017-05-29] MEDS ORDERED: FLOMAX0.4 MG PO (07:08)
[2017-05-29] MEDS ORDERED: CEFTRIAXONE1 G/VIAL IM (07:11)
[2017-05-29] MEDS ORDERED: COLACE100 MG PO (07:12)
[2017-05-29] MEDS ORDERED: PROMOD LIQUID P30 M1 PO (07:13)
[2017-05-29 07:19] LABS: INR 1.08 (0.85-1.17); PROTIME 13.6 SECONDS (11.6-15.0)
[2017-05-29 07:23] VITALS: BP 133/72; BMI 31.2
[2017-05-29 07:26] LABS: ANION GAP 14.8 mmol/L (8-16); CALCIUM 8.7 mg/dL (8.5-10.1); CARBON DIOXIDE 24.7 mmol/L (21.0-32.0); CREATININE - SERUM 1.2 mg/dL (0.6-1.3); POTASSIUM - SERUM 3.5 mmol/L (3.5-5.1)
[2017-05-29 12:07] VITALS: BP 151/75
[2017-05-29 19:21] VITALS: BP 151/75; BMI 31.1
[2017-05-29 21:52] VITALS: BP 159/77
[2017-05-30 00:37] VITALS: BP 162/80
[2017-05-30 04:59] VITALS: BP 154/74
[2017-05-30 05:07] LABS: HEMATOCRIT 29.2 % (42.0-54.0); MCH 28.4 pg (26.0-34.0); MCHC 30.8 g/dL (31.0-37.0); MEAN PLATELET VOLUME 9.1 fL (7.4-10.4); RBC 3.17 10x6/uL (4.20-6.10); RDW 14.9 % (11.5-14.5)
[2017-05-30 05:20] LABS: MCV 92.1 fL (80.0-100.0)
[2017-05-30 07:44] VITALS: BP 161/88
[2017-05-30 12:02] VITALS: BP 126/63
[2017-05-30 12:57] VITALS: Ht 182.9 cm; Wt 103.9 kg
[2017-05-30 16:37] VITALS: BP 144/70
[2017-05-30 21:02] VITALS: BP 155/78
[2017-05-31 00:04] VITALS: BP 148/78
[2017-05-31 06:27] LABS: HEMATOCRIT 29.7 % (42.0-54.0); HEMOGLOBIN 9.1 g/dL (13.5-17.5); MCH 28.3 pg (26.0-34.0); MCHC 30.6 g/dL (31.0-37.0); MCV 92.2 fL (80.0-100.0); MEAN PLATELET VOLUME 9.2 fL (7.4-10.4); RBC 3.22 10x6/uL (4.20-6.10); RDW 15.4 % (11.5-14.5); WBC 9.8 10x3/uL (4.8-10.8)
[2017-05-31 08:06] VITALS: BP 147/66
== END 2017-05-31 18:05 | DRG 483 ==
LOC: D.SDCHOLD 06:13 → D.MS 06:13 → D.SDCHOLD 08:30 → D.MS 11:51
PROVIDERS: Orthopaedic Surgery
PROC: 0RPJ0JZ Removal of Synthetic Substitute from Right Shoulder Joint, Open Approach (ICD-10-PCS; 2017-05-29)
PROC: 0RRJ0J6 Replacement of Right Shoulder Joint with Synthetic Substitute, Humeral Surface, Open Approach (ICD-10-PCS; principal; 2017-05-29 08:45)
DX: T84.028A Dislocation of other internal joint prosthesis, initial encounter (principal); D62 Acute posthemorrhagic anemia; Z96.611 Presence of right artificial shoulder joint; I12.9 Hypertensive chronic kidney disease with stage 1 through stage 4 chronic kidney disease, or unspecified chronic kidney disease; E11.22 Type 2 diabetes mellitus with diabetic chronic kidney disease; N18.3 Chronic kidney disease, stage 3 (moderate); Z79.84 Long term (current) use of oral hypoglycemic drugs; R41.0 Disorientation, unspecified; F03.90 Unspecified dementia, unspecified severity, without behavioral disturbance, psychotic disturbance, mood disturbance, and anxiety; Z87.891 Personal history of nicotine dependence

== ENCOUNTER 2017-05-31 16:53 | Inpatient (IN) | payer MEDICARE, OTHER ==
[~2017-05-31] VITALS: Ht 182.9 cm; Wt 104.8 kg
--- NOTE | ~2017-05-31 | DS ---
PATIENT:BUNNY MISHRA :38 MEDICAL RECORD: [id number] DISCHARGE SUMMARY ADMISSION DATE: 05/31/17 DISCHARGE DATE: 06/13/17 This is a discharge dated 06/13/2017 from inpatient rehabilitation. PRIMARY DIAGNOSIS: Decreased functional ability and ability to provide activities of daily living secondary to Parkinson's disease. SECONDARY DIAGNOSES: 1. Status post fall. 2. Status post right shoulder revision. 3. Hypokalemia. 4. Diabetes. 5. Anemia. 6. Chronic back pain. 7. CKD, stage III. 8. Dementia. 9. Gastroesophageal reflux disease. 10. Hypertension. 11. Hyperlipidemia. HOSPITAL COURSE: Full H&P is located elsewhere on the chart on this 76-year-old male who was admitted to inpatient rehab for physical therapy and occupational therapy to improve gait, transfer skills, bed mobility, and activities of daily living to a modified independent level. He was evaluated by PT and OT and their plans of care were followed. He required [facility] care for observation and assessment and medication administration. Electrolytes were managed by protocol. He was continued on appropriate home medications. Fingerstick blood sugars were monitored throughout his hospital stay with appropriate adjustment in medications as needed. He was cooperative with therapies, progressing towards goals. Case management was involved for discharge planning. He was considered stable for discharge on 06/13/2017. DISCHARGE MEDICATIONS: As per discharge medication reconciliation. DISCHARGE DISPOSITION: The patient is discharged home. He will continue his current diet and level of activity. He will have home health for continued [facility], PT and OT. He will have a bedside commode obtained from [facility] and will follow up with primary care and specialists as directed. At least 30 minutes was spent in this discharge activity. TRANSINT:[id number] Voice Confirmation ID: [id number] DOCUMENT ID: [id number] Dictated By: MAXIME BRAUN I have interviewed/examined the above patient and agree with these documented findings. DISCHARGE SUMMARY REPORT [id number] BUNNY MISHRA SCOTT MD at 1157 at 0940 CC: [id number] DICTATION DATE: 06/25/171906 BARREL BANDER: 06/26/17 0324 DIS IN 06/13/17 [facility] [address] [place], [place] [id number]
--- NOTE | ~2017-05-31 | RHP ---
PATIENT: BUNNY MISHRA MEDICAL RECORD: [id number] ACCOUNT: [id number] LOCATION:[facility] D.1115 : 38 ADMISSION DATE: 05/31/17 REHABILITATION HISTORY AND PHYSICAL EXAMINATION POST ADMISSION PHYSICIAN EXAMINATION POST-ADMISSION PHYSICAL EXAMINATION AND HISTORY AND PHYSICAL DATE OF ADMISSION TO REHAB: 05/31/2017 ADMITTING DIAGNOSIS: Parkinson disease. HISTORY OF PRESENT ILLNESS: The patient is a 76-year-old gentleman, who presents to the rehab with a working diagnosis of Parkinson disease. He was admitted to acute hospital status post fall. He had sustained a failed hemiarthroscopy of the right shoulder with Watts taper dissociation in situ, that he had to undergo a revision hemiarthroscopy of the right shoulder. He has increasingly been having problems with weakness, functional decline, confusion, and frequent falls, and his placed him in a skilled facility for a short time to increase his strength where he sustained a fall that caused his acute hospital admit. He has had postop complications of anemia with H&H of 9 and 29 requiring continuous O2. He has had leukocytosis with a white count of 17.4. He has been on a low-resistant sliding scale. He is kzgkaynf-os-mrb assist for ADLs and mobility. He is moderate assist for vtg-pi-qujfb and zje-ia-kbnhl. He is max assist for ambulation 8 feet with a rolling walker, gait belt, and PT. He has overall poor balance, weakness in all extremities, more proximal than distal. Previously, he was moderately independent with a rolling walker at home for ADLs and mobility. His states that he has had a slow decline in his functional ability. They both feel like he would benefit from acute rehab to hopefully get back to his prior level of functioning. Comorbidities in this patient include Parkinson's, acute humeral head fracture, chronic dementia, acute blood loss anemia, chronic kidney disease stage III, postop confusion, and recent falls. PAST MEDICAL HISTORY: Significant for Parkinson's. He has got a history of diabetes type 2, pneumonia, past tobacco use, acid reflux, and chronic back pain. PAST SURGICAL HISTORY: Includes tonsillectomy and right shoulder surgery times 2. ALLERGIES: PENICILLIN. CURRENT MEDICATIONS: Include Flomax 0.4 mg at bedtime, Floranex 250 mg daily, Prozac 40 mg daily, finasteride 5 mg daily, aspirin 81 mg daily, Norvasc 10 mg daily, Calmoseptine to apply as needed, Ambien 5 mg at bedtime p.r.n., Crestor 10 mg at bedtime, Pepcid 20 mg b.i.d., niacin 500 mg b.i.d., Namenda 5 mg b.i.d., Ativan 2 mg at bedtime, [place] 1 tab every 6 hours p.r.n., Colace 100 mg b.i.d., diltiazem 120 mg b.i.d., Catapres 0.1 mg every 4 hours p.r.n., Tylenol 500 mg every 4 hours p.r.n., and MiraLax 17 grams in 8 ounces of water daily. HABITS: No current alcohol or tobacco use. FAMILY HISTORY: Noncontributory. HISTORY AND PHYSICAL [id number] BUNNY MISHRA SOCIAL HISTORY: The patient hopes to return back home and get back to his prior level of functioning with his . REVIEW OF SYSTEMS: GENERAL: Does complain of weakness. HEENT: Denies cold, cough, or congestion. CARDIOVASCULAR: Denies chest pain. PHYSICAL EXAMINATION: VITAL SIGNS: Stable, afebrile. GENERAL: Elderly male, in no acute distress upon exam. HEENT: Normocephalic and atraumatic. Mucosa moist. NECK: Supple. No lymphadenopathy. LUNGS: Clear at this time. HEART: Regular rate and rhythm. ABDOMEN: Benign. EXTREMITIES: Does have a sling in place. NEUROLOGIC: Consistent with Parkinson's. LABORATORY DATA: His white count is 9.6, H&H of 8.8 and 28.5, and platelet count is noted to be 391. Sodium 142, potassium 3.2, BUN and creatinine of 11 and 1.3, and blood sugar is noted to be 106. ASSESSMENT: This is a 76-year-old gentleman admitted to the rehab with a working diagnosis of Parkinson disease complicated by failed shoulder surgery. The patient has potential to make improvement. We will institute the following multidisciplinary therapies including, but not limited to physical, occupational, respiratory, speech, nutritional services, prosthetics and orthotics. Given his complex medical condition and risk for more complications, rehabilitation services cannot be provided at a low level of care such as a [facility]. PLAN: 1. Admit to [facility] for intensive inpatient therapy to include the following disciplines: A. Physical therapy to improve gait, all transfer skills and bed mobility to a modified independent level. B. Occupational therapy to improve activities of daily living to a modified independent level. C. Case management to assist with discharge planning and placement options. D. Nutrition to assist with nutritional needs. E. Rehabilitation nursing to assist in monitoring the patient's underlying medical conditions and to assist with any type of bowel or bladder management. 2. The patient's current medications will be continued. 3. The patient will be placed on standard fall precautions. 4. The patient's estimated length of stay is approximately 7-10 days. 5. We will discuss this patient during care team staff meeting this week. TRANSINT:[id number] Voice Confirmation ID: [id number] DOCUMENT ID: [id number] CALI notes whether there has been none or any medical/functional change since admission: - No change since the PAS HISTORY AND PHYSICAL [id number] BUNNY MISHRA attests patient continues to be appropriate for IRF: - Remains appropriate for the IRF ADOLFO DÍAZ MD at 0837 CC: [id number] DICTATION DATE: 06/01/17 0853 COLOR CORRECTOR: 06/01/17 1010 ADM IN [facility] [address] [place] [address]
[~2017-05-31 16:53] MED LIST changes: +CEFTRIAXONE1 G/VIAL IM; +COLACE100 MG PO; +FLOMAX0.4 MG PO; +HYDROCODON-ACE1 EAC7 PO; +HYDROCODONE-APA1 TAB PO; +PROBIOTIC250 MG PO; +PROMOD LIQUID P30 M1 PO
[2017-05-31 19:46] VITALS: BP 134/61
[2017-05-31 22:53] VITALS: BP 134/61; BMI 31.4
[2017-06-01 06:32] LABS: BASOPHILS 0.2 % (0-2); EOSINOPHILS 4.2 % (0-7); HEMATOCRIT 28.5 % (42.0-54.0); HEMOGLOBIN 8.8 g/dL (13.5-17.5); IMMATURE GRANULOCYTES 0.6 % (0-5); LYMPHOCYTES 12.6 % (15-50); MCH 28.3 pg (26.0-34.0); MCHC 30.9 g/dL (31.0-37.0); MCV 91.6 fL (80.0-100.0); MEAN PLATELET VOLUME 9.1 fL (7.4-10.4); MONOCYTES 7.4 % (2-11); PLATELET COUNT 391 10x3/uL (130-400); RBC 3.11 10x6/uL (4.20-6.10); RDW 15.2 % (11.5-14.5); WBC 9.6 10x3/uL (4.8-10.8)
[2017-06-01 06:50] LABS: ANION GAP 14.4 mmol/L (8-16); CALCIUM 8.6 mg/dL (8.5-10.1); CARBON DIOXIDE 23.8 mmol/L (21.0-32.0); CREATININE - SERUM 1.3 mg/dL (0.6-1.3); POTASSIUM - SERUM 3.2 mmol/L (3.5-5.1)
[2017-06-01 08:23] VITALS: BP 146/65
[2017-06-01 11:17] VITALS: Ht 182.9 cm; Wt 104.8 kg
[2017-06-01 19:17] VITALS: BP 126/59
[2017-06-02 06:17] LABS: BASOPHILS 0.4 % (0-2); EOSINOPHILS 6.4 % (0-7); HEMATOCRIT 26.9 % (42.0-54.0); HEMOGLOBIN 8.3 g/dL (13.5-17.5); IMMATURE GRANULOCYTES 0.5 % (0-5); LYMPHOCYTES 10.5 % (15-50); MCH 27.9 pg (26.0-34.0); MCHC 30.9 g/dL (31.0-37.0); MCV 90.6 fL (80.0-100.0); MEAN PLATELET VOLUME 9.2 fL (7.4-10.4); MONOCYTES 9.2 % (2-11); PLATELET COUNT 371 10x3/uL (130-400); RBC 2.97 10x6/uL (4.20-6.10); RDW 14.8 % (11.5-14.5); WBC 8.5 10x3/uL (4.8-10.8)
[2017-06-02 06:26] LABS: ANION GAP 14.1 mmol/L (8-16); CALCIUM 8.1 mg/dL (8.5-10.1); CARBON DIOXIDE 24.9 mmol/L (21.0-32.0); CREATININE - SERUM 1.4 mg/dL (0.6-1.3)
[2017-06-02 08:30] VITALS: BP 143/71
[2017-06-02 23:03] VITALS: BP 132/63
[2017-06-03 16:05] VITALS: BP 134/74
[2017-06-03 19:38] VITALS: BP 141/70
[2017-06-04 08:00] VITALS: BP 127/59
[2017-06-05 01:18] VITALS: BP 146/74
[2017-06-05 07:12] LABS: BASOPHILS 0.3 % (0-2); EOSINOPHILS 7.3 % (0-7); HEMATOCRIT 27.2 % (42.0-54.0); HEMOGLOBIN 8.3 g/dL (13.5-17.5); IMMATURE GRANULOCYTES 0.5 % (0-5); LYMPHOCYTES 10.8 % (15-50); MCH 27.9 pg (26.0-34.0); MCHC 30.5 g/dL (31.0-37.0); MCV 91.3 fL (80.0-100.0); MEAN PLATELET VOLUME 9.5 fL (7.4-10.4); MONOCYTES 11.8 % (2-11); NEUTROPHILS 69.3 % (40-80); PLATELET COUNT 312 10x3/uL (130-400); RBC 2.98 10x6/uL (4.20-6.10); RDW 14.9 % (11.5-14.5); WBC 6.3 10x3/uL (4.8-10.8)
[2017-06-05 07:25] LABS: ANION GAP 13.9 mmol/L (8-16); CALCIUM 8.4 mg/dL (8.5-10.1); CARBON DIOXIDE 23.6 mmol/L (21.0-32.0); CREATININE - SERUM 1.3 mg/dL (0.6-1.3); POTASSIUM - SERUM 3.5 mmol/L (3.5-5.1)
[2017-06-05 07:40] VITALS: BP 136/74
[2017-06-05 19:19] VITALS: BP 152/59
[2017-06-06 08:00] VITALS: BP 148/74
[2017-06-06 19:09] VITALS: BP 146/69
[2017-06-07 07:03] LABS: BASOPHILS 0.4 % (0-2); EOSINOPHILS 6.1 % (0-7); HEMATOCRIT 26.7 % (42.0-54.0); HEMOGLOBIN 8.3 g/dL (13.5-17.5); IMMATURE GRANULOCYTES 0.4 % (0-5); LYMPHOCYTES 12.1 % (15-50); MCH 28.2 pg (26.0-34.0); MCHC 31.1 g/dL (31.0-37.0); MCV 90.8 fL (80.0-100.0); MEAN PLATELET VOLUME 9.5 fL (7.4-10.4); MONOCYTES 10.5 % (2-11); NEUTROPHILS 70.5 % (40-80); RBC 2.94 10x6/uL (4.20-6.10); RDW 15.1 % (11.5-14.5); WBC 7.2 10x3/uL (4.8-10.8)
[2017-06-07 07:11] LABS: PLATELET COUNT 249 10x3/uL (130-400)
[2017-06-07 07:33] LABS: ANION GAP 11.7 mmol/L (8-16); CALCIUM 8.6 mg/dL (8.5-10.1); CARBON DIOXIDE 25.3 mmol/L (21.0-32.0); CREATININE - SERUM 1.4 mg/dL (0.6-1.3)
[2017-06-07 08:00] VITALS: BP 145/70
[2017-06-07 22:07] VITALS: BP 132/60
[2017-06-08 08:00] VITALS: BP 119/72
[2017-06-08 19:09] VITALS: BP 139/68
[2017-06-09 06:33] LABS: BASOPHILS 0.3 % (0-2); HEMATOCRIT 26.9 % (42.0-54.0); HEMOGLOBIN 8.2 g/dL (13.5-17.5); IMMATURE GRANULOCYTES 0.5 % (0-5); LYMPHOCYTES 19.9 % (15-50); MCHC 30.5 g/dL (31.0-37.0); MCV 91.8 fL (80.0-100.0); MEAN PLATELET VOLUME 9.8 fL (7.4-10.4); MONOCYTES 8.5 % (2-11); NEUTROPHILS 63.8 % (40-80); PLATELET COUNT 246 10x3/uL (130-400); RBC 2.93 10x6/uL (4.20-6.10); RDW 15.2 % (11.5-14.5); WBC 6.3 10x3/uL (4.8-10.8)
[2017-06-09 07:13] LABS: ANION GAP 12.1 mmol/L (8-16); CALCIUM 8.7 mg/dL (8.5-10.1); CARBON DIOXIDE 23.8 mmol/L (21.0-32.0); CREATININE - SERUM 1.4 mg/dL (0.6-1.3); POTASSIUM - SERUM 3.9 mmol/L (3.5-5.1)
[2017-06-09 08:00] VITALS: BP 142/76
[2017-06-09 20:39] VITALS: BP 123/89
[2017-06-10 08:38] VITALS: BP 143/71
[2017-06-10 20:54] VITALS: BP 153/70
[2017-06-11 01:48] VITALS: BP 153/70
[2017-06-11 09:09] VITALS: BP 140/60
[2017-06-12 00:32] VITALS: BP 104/74
[2017-06-12 06:06] LABS: BASOPHILS 0.3 % (0-2); EOSINOPHILS 7.7 % (0-7); HEMATOCRIT 28.5 % (42.0-54.0); HEMOGLOBIN 8.7 g/dL (13.5-17.5); IMMATURE GRANULOCYTES 0.3 % (0-5); LYMPHOCYTES 17.3 % (15-50); MCHC 30.5 g/dL (31.0-37.0); MCV 91.6 fL (80.0-100.0); MEAN PLATELET VOLUME 9.8 fL (7.4-10.4); MONOCYTES 7.5 % (2-11); NEUTROPHILS 66.9 % (40-80); PLATELET COUNT 240 10x3/uL (130-400); RBC 3.11 10x6/uL (4.20-6.10); RDW 15.5 % (11.5-14.5); WBC 7.4 10x3/uL (4.8-10.8)
[2017-06-12 06:25] LABS: ANION GAP 12.6 mmol/L (8-16); CALCIUM 8.6 mg/dL (8.5-10.1); CARBON DIOXIDE 23.4 mmol/L (21.0-32.0); CREATININE - SERUM 1.3 mg/dL (0.6-1.3)
[2017-06-12 08:00] VITALS: BP 139/73
[2017-06-12 19:54] VITALS: BP 120/64
[2017-06-13 08:00] VITALS: BP 162/77
== END 2017-06-13 14:21 | disposition home health service (06) | DRG 57 ==
LOC: D.REHAB 16:53
PROVIDERS: Emergency Medicine
DX: G20 Parkinson's disease (principal); D62 Acute posthemorrhagic anemia; S42.291D Other displaced fracture of upper end of right humerus, subsequent encounter for fracture with routine healing; W19.XXXD Unspecified fall, subsequent encounter; D64.9 Anemia, unspecified; E11.22 Type 2 diabetes mellitus with diabetic chronic kidney disease; N18.3 Chronic kidney disease, stage 3 (moderate); F03.90 Unspecified dementia, unspecified severity, without behavioral disturbance, psychotic disturbance, mood disturbance, and anxiety

== ENCOUNTER 2017-06-17 18:09 | Emergency (ER) | payer MEDICARE, OTHER ==
[2017-06-01 11:17] VITALS: BMI 31.3
== END 2017-06-17 20:05 | disposition home or self-care (01) ==
LOC: D.ER 18:09
DX: S49.91XA Unspecified injury of right shoulder and upper arm, initial encounter (principal); W19.XXXA Unspecified fall, initial encounter; Y93.89 Activity, other specified; Y92.019 Unspecified place in single-family (private) house as the place of occurrence of the external cause

== ENCOUNTER 2017-07-02 06:34 | Emergency (ER) | payer MEDICARE, OTHER ==
[2017-06-01 11:17] VITALS: BMI 31.3
== END 2017-07-02 09:05 | disposition home or self-care (01) ==
LOC: D.ER 06:34
DX: S51.811A Laceration without foreign body of right forearm, initial encounter (principal); W01.0XXA Fall on same level from slipping, tripping and stumbling without subsequent striking against object, initial encounter; Y93.89 Activity, other specified; Y92.019 Unspecified place in single-family (private) house as the place of occurrence of the external cause

== ENCOUNTER 2017-07-07 20:54 | Emergency (ER) | payer MEDICARE, OTHER ==
[2017-06-01 11:17] VITALS: BMI 31.3
== END 2017-07-07 22:07 | disposition home or self-care (01) ==
LOC: D.ER 20:54
DX: S01.91XA Laceration without foreign body of unspecified part of head, initial encounter (principal); W18.31XA Fall on same level due to stepping on an object, initial encounter; Y93.89 Activity, other specified; Y92.019 Unspecified place in single-family (private) house as the place of occurrence of the external cause; S40.011A Contusion of right shoulder, initial encounter

== ENCOUNTER 2017-08-01 12:26 | Observation (INO) | payer MEDICARE, OTHER ==
[~2017-08-01] VITALS: Ht 182.9 cm; Wt 89.9 kg
[2017-08-01 12:53] VITALS: BP 115/70
[2017-08-01 12:55] LABS: BASOPHILS 0.3 % (0-2); EOSINOPHILS 1.8 % (0-7); HEMATOCRIT 38.5 % (42.0-54.0); HEMOGLOBIN 14.6 g/dL (13.5-17.5); IMMATURE GRANULOCYTES 0.2 % (0-5); LYMPHOCYTES 10.8 % (15-50); MCH 33.3 pg (26.0-34.0); MCHC 37.9 g/dL (31.0-37.0); MCV 87.7 fL (80.0-100.0); MEAN PLATELET VOLUME 9.7 fL (7.4-10.4); NEUTROPHILS 79.9 % (40-80); PLATELET COUNT 241 10x3/uL (130-400); RBC 4.39 10x6/uL (4.20-6.10); RDW 14.9 % (11.5-14.5); WBC 10.7 10x3/uL (4.8-10.8)
[2017-08-01 13:15] LABS: ALBUMIN 3.9 g/dL (3.4-5.0); ALKALINE PHOSPHATASE 134 U/L (46-116); ALT (SGPT) 19 U/L (10-68); CALC OSMOLALITY 284 mosm/kg (275-300); CARBON DIOXIDE 24.4 mmol/L (21.0-32.0); CHLORIDE - SERUM 105 mmol/L (98-107); CREATINE KINASE 106 UL (21-232); CREATININE - SERUM 1.2 mg/dL (0.6-1.3); GLUCOSE 113 mg/dL (74-106); POTASSIUM - SERUM 3.4 mmol/L (3.5-5.1); PROTEIN - SERUM 7.8 g/dL (6.4-8.2); SODIUM 142 mmol/L (136-145); TROPONIN-I < 0.017 ng/mL (0.000-0.060); UREA NITROGEN 14 mg/dL (7-18); eGFR NON AFRICAN AMERICAN 62 mL/min (90-120)
[2017-08-01 13:30] VITALS: BP 136/80
[2017-08-01 14:00] VITALS: BP 145/77
[2017-08-01 14:30] VITALS: BP 152/74
[2017-08-01 17:18] VITALS: BP 161/84; Ht 182.9 cm; Wt 89.9 kg
[2017-08-01 20:09] VITALS: BP 141/77
[2017-08-02 00:09] VITALS: BP 110/61
[2017-08-02 05:08] VITALS: BP 123/65
[2017-08-02 05:10] LABS: BASOPHILS 0.3 % (0-2); EOSINOPHILS 3.8 % (0-7); HEMATOCRIT 36.4 % (42.0-54.0); IMMATURE GRANULOCYTES 0.4 % (0-5); LYMPHOCYTES 16.1 % (15-50); MCH 27.9 pg (26.0-34.0); MCHC 31.6 g/dL (31.0-37.0); MCV 88.3 fL (80.0-100.0); MEAN PLATELET VOLUME 9.8 fL (7.4-10.4); NEUTROPHILS 71.4 % (40-80); PLATELET COUNT 236 10x3/uL (130-400); RBC 4.12 10x6/uL (4.20-6.10); RDW 15.1 % (11.5-14.5)
[2017-08-02 05:17] LABS: HEMOGLOBIN 11.5 g/dL (13.5-17.5)
[2017-08-02 05:34] LABS: ANION GAP 13.7 mmol/L (8-16); BILIRUBIN - TOTAL 0.6 mg/dL (0.2-1.3); CALCIUM 9.1 mg/dL (8.5-10.1); CARBON DIOXIDE 25.9 mmol/L (21.0-32.0); CREATININE - SERUM 1.2 mg/dL (0.6-1.3); PHOSPHOROUS 3.8 mg/dL (2.5-4.9); POTASSIUM - SERUM 3.6 mmol/L (3.5-5.1); PROTEIN - SERUM 5.9 g/dL (6.4-8.2)
[2017-08-02 05:49] LABS: ALBUMIN 2.9 g/dL (3.4-5.0)
[2017-08-02 07:53] VITALS: BP 124/73
[2017-08-02 11:52] VITALS: BP 110/71
[2017-08-02] MEDS ORDERED: BETAPACE 80 MG80 MG PO (12:27)
== END 2017-08-02 15:52 | disposition home or self-care (01) ==
LOC: D.ER 12:26 → OBSVTIME 14:15 → D.EDHOLD 14:15 → D.M2 14:15
PROVIDERS: Family Medicine
DX: I47.1 Supraventricular tachycardia (principal); E11.22 Type 2 diabetes mellitus with diabetic chronic kidney disease; I12.9 Hypertensive chronic kidney disease with stage 1 through stage 4 chronic kidney disease, or unspecified chronic kidney disease; N18.3 Chronic kidney disease, stage 3 (moderate); E78.5 Hyperlipidemia, unspecified; F03.90 Unspecified dementia, unspecified severity, without behavioral disturbance, psychotic disturbance, mood disturbance, and anxiety

== ENCOUNTER 2017-08-04 17:06 | Inpatient (IN) | payer MEDICARE, OTHER ==
[~2017-08-04] VITALS: Ht 182.9 cm; Wt 90.0 kg
[~2017-08-04 17:06] MED LIST changes: +BETAPACE 80 MG80 MG PO
[2017-08-04 18:22] VITALS: BP 156/73
[2017-08-04 19:02] LABS: BASOPHILS 0.2 % (0-2); EOSINOPHILS 2.5 % (0-7); IMMATURE GRANULOCYTES 0.4 % (0-5); LYMPHOCYTES 13.2 % (15-50); MCH 28.4 pg (26.0-34.0); MCHC 32.5 g/dL (31.0-37.0); MCV 87.3 fL (80.0-100.0); MEAN PLATELET VOLUME 10.2 fL (7.4-10.4); MONOCYTES 8.5 % (2-11); NEUTROPHILS 75.2 % (40-80); PLATELET COUNT 282 10x3/uL (130-400); RBC 4.58 10x6/uL (4.20-6.10); RDW 15.1 % (11.5-14.5); WBC 10.5 10x3/uL (4.8-10.8)
[2017-08-04 19:14] LABS: ANION GAP 12.8 mmol/L (8-16); CALCIUM 9.6 mg/dL (8.5-10.1); CARBON DIOXIDE 25.7 mmol/L (21.0-32.0); CREATININE - SERUM 1.1 mg/dL (0.6-1.3); POTASSIUM - SERUM 3.5 mmol/L (3.5-5.1)
[2017-08-04 19:30] VITALS: BP 135/75
[2017-08-04 21:20] LABS: APPEARANCE CLEAR (CLEAR); BILIRUBIN NEGATIVE (NEGATIVE); COLOR YELLOW (YELLOW); GLUCOSE NEGATIVE (NEGATIVE); KETONE NEGATIVE (NEGATIVE); NITRITE NEGATIVE (NEGATIVE); PROTEIN NEGATIVE (NEGATIVE); SPECIFIC GRAVITY 1.015 (1.005-1.020); UROBILINOGEN NORMAL (NORMAL)
[2017-08-04 21:21] LABS: BACTERIA FEW /hpf (NONE SEEN); RED CELLS - URINE 0-5 /hpf (0-5); WHITE CELLS - URINE 25-50 /hpf (0-5)
[2017-08-04 21:28] LABS: CKMB 3.1 U/L (0.0-3.6); CREATINE KINASE 86 UL (21-232); MAGNESIUM - SERUM 2.1 mg/dL (1.8-2.4)
[2017-08-04 21:29] LABS: TROPONIN-I < 0.017 ng/mL (0.000-0.060)
[2017-08-04 21:30] VITALS: BP 162/83
[2017-08-04 23:30] VITALS: BP 157/98
[2017-08-05] VITALS (7 sets, daily range): BP systolic 133–163; BP diastolic 64–78; Ht 182.9 cm; Wt 90.0 kg
[2017-08-06 00:30] VITALS: BP 148/71
[2017-08-06 04:30] VITALS: BP 134/71
[2017-08-06 06:04] LABS: BASOPHILS 0.2 % (0-2); EOSINOPHILS 3.7 % (0-7); HEMATOCRIT 38.1 % (42.0-54.0); HEMOGLOBIN 12.2 g/dL (13.5-17.5); IMMATURE GRANULOCYTES 0.4 % (0-5); LYMPHOCYTES 15.4 % (15-50); MCH 27.9 pg (26.0-34.0); MEAN PLATELET VOLUME 10.4 fL (7.4-10.4); MONOCYTES 9.7 % (2-11); NEUTROPHILS 70.6 % (40-80); PLATELET COUNT 256 10x3/uL (130-400); RBC 4.38 10x6/uL (4.20-6.10); RDW 14.9 % (11.5-14.5); WBC 9.8 10x3/uL (4.8-10.8)
[2017-08-06 06:35] LABS: ANION GAP 12.9 mmol/L (8-16); BILIRUBIN - TOTAL 0.39 mg/dL (0.2-1.3); CALCIUM 9.3 mg/dL (8.5-10.1); CARBON DIOXIDE 24.3 mmol/L (21.0-32.0); CREATININE - SERUM 1.1 mg/dL (0.6-1.3); POTASSIUM - SERUM 3.2 mmol/L (3.5-5.1); PROTEIN - SERUM 6.4 g/dL (6.4-8.2)
[2017-08-06 07:49] VITALS: BP 107/55
[2017-08-06 11:50] VITALS: BP 131/56
[2017-08-06 15:56] VITALS: BP 146/68
[2017-08-06 20:30] VITALS: BP 156/67
[2017-08-07 00:30] VITALS: BP 140/68
[2017-08-07 04:30] VITALS: BP 119/58
[2017-08-07 05:22] LABS: BASOPHILS 0.2 % (0-2); EOSINOPHILS 3.8 % (0-7); HEMATOCRIT 36.2 % (42.0-54.0); HEMOGLOBIN 11.5 g/dL (13.5-17.5); IMMATURE GRANULOCYTES 0.4 % (0-5); LYMPHOCYTES 16.5 % (15-50); MCH 27.8 pg (26.0-34.0); MCHC 31.8 g/dL (31.0-37.0); MCV 87.7 fL (80.0-100.0); MEAN PLATELET VOLUME 10.1 fL (7.4-10.4); MONOCYTES 9.7 % (2-11); NEUTROPHILS 69.4 % (40-80); PLATELET COUNT 252 10x3/uL (130-400); RBC 4.13 10x6/uL (4.20-6.10); RDW 15.1 % (11.5-14.5)
[2017-08-07 05:57] LABS: ALBUMIN 2.7 g/dL (3.4-5.0); ANION GAP 12.1 mmol/L (8-16); BILIRUBIN - TOTAL 0.3 mg/dL (0.2-1.3); CALCIUM 8.9 mg/dL (8.5-10.1); CARBON DIOXIDE 26.6 mmol/L (21.0-32.0); CREATININE - SERUM 1.2 mg/dL (0.6-1.3); PROTEIN - SERUM 5.9 g/dL (6.4-8.2)
[2017-08-07 06:06] LABS: POTASSIUM - SERUM 3.7 mmol/L (3.5-5.1)
[2017-08-07 09:03] VITALS: BP 137/72
== END 2017-08-07 13:02 | disposition home health service (06) | DRG 689 ==
LOC: D.ER 17:06 → D.EDHOLD 08-05 01:01 → D.M2 08-05 01:01
PROVIDERS: Emergency Medicine; Family Medicine
DX: N39.0 Urinary tract infection, site not specified (principal); G92 Toxic encephalopathy; E11.22 Type 2 diabetes mellitus with diabetic chronic kidney disease; I12.9 Hypertensive chronic kidney disease with stage 1 through stage 4 chronic kidney disease, or unspecified chronic kidney disease; N18.3 Chronic kidney disease, stage 3 (moderate); K21.9 Gastro-esophageal reflux disease without esophagitis; F03.90 Unspecified dementia, unspecified severity, without behavioral disturbance, psychotic disturbance, mood disturbance, and anxiety